=== PATIENT | male | born 1985 | race Caucasian/White ===

== ENCOUNTER 2023-04-07 09:52 | Emergency (ER) | payer BC, SELFPAY ==
--- NOTE | 2023-04-07 10:01 | ED.ABDPAIN ---
HPI - Abdominal Pain General Chief Complaint: Abdominal Pain Stated Complaint: stomach pain Time Seen by Provider: 04/07/23 10:01 Source: patient Mode of arrival: ambulatory Limitations: no limitations History of Present Illness HPI narrative: Harsha is a 37-year-old male patient presenting to clinic today with complaints of abdominal pain x3 days. He reports that he noticed some dark stools this morning. No fever, chills, body aches, nausea, vomiting, or diarrhea. Is passing gas. Has a pressure sensation pain to the left lower quadrant-rates pain a 6/10 is pretty constant. Denies any urinary symptoms. Does drink alcohol regularly. Did take Pepto yesterday to help alleviate symptoms Related Data Home Medications Medication Instructions Recorded Confirmed phentermine 37.5 mg tablet mg 04/07/23 Allergies Allergy/AdvReac Type Severity Reaction Status Date / Time No Known Allergies Allergy Verified 04/07/23 10:02 Review of Systems Review of Systems: Pertinent positives per HPI. Patient denies any fever, chills, rash, headache, visual changes, dizziness, cough, runny nose, sore throat, shortness of breath, chest pain, palpitations, nausea, vomiting, diarrhea, constipation, or any urinary issues. PMFSH Comments At the time of my signature, I reviewed and agree with the nursing past medical, surgical, social, and family history. There is no relevant family history pertinent to the patient complaint. Exam Narrative: General: Well-developed, well nourished, in no apparent distress. Head: Normocephalic, atraumatic. Cardio: Regular rate and rhythm, s1 and s2 normal, no murmur appreciated. Resp: Clear to auscultation bilaterally, no rhonchi, rales, wheezing or rubs. Abdomen: Soft, pliable, bowel sounds present in all quadrants, tender to palpation mostly over the left lower quadrant but some pain in the right upper quadrant and the left upper quadrant as well, no organomegly, no CVAT tenderness. Course Course Emergency Course: Portions of this record may have been created with voice recognition software. Level of Care: Express Care Visit Vital Signs Vital signs: Vital signs reviewed Transfer Transfered to: Other ([facility]) Transportation: Other (private car) Transfer rationale: Left lower quadrant abdominal pain with dark stools Accepting physician: Dr. Maxwell Transfer comments: private car MDM - Abdominal Pain MDM Narrative Medical decision making narrative: At the time of visit patient is resting comfortably on the exam table. Patient has significant pain to the left lower quadrant but also some pain and the right upper quadrant and left upper quadrant. Is reporting dark stools but has taken Pepto. Recommend further evaluation in the ER for labs and CT. Patient would like to be transfer to [facility] and [place], [place]. Contacted James MCHUGH at [facility] and report was given for continuity of care. Dr. Maxwell accepts patient for transfer Differential Diagnosis Differential diagnosis: Likely abdominal pain, constipation, diverticulitis, gastroenteritis, pancreatitis, small bowel obstruction and other (GI bleed) Discharge Plan Discharge Clinical Impression: Left lower quadrant abdominal pain, Dark stools Patient Disposition: Acute Care Hospital Condition: Stable Prescriptions: No Action phentermine 37.5 mg tablet Follow-up/Referrals: PHYSICIAN,STANDARDS ANALYST [Primary Care Provider] - Time of Disposition: 10:20 Quality NIHSS Nursing Documentation ED NIHSS nursing documentation: reviewed/agree
[2023-04-07 10:03] VITALS: BP 136/82; PULSE 95; RESP 16; TEMP 37.3; O2SAT 98
== END 2023-04-07 10:21 | disposition short-term general hospital (02) ==
PROVIDERS: Emergency Provider Nurse Practitioner Family
DX: R10.32 Left lower quadrant pain (principal); R19.5 Other fecal abnormalities
CPT/HCPCS: 99202; G0463

== ENCOUNTER 2023-07-11 11:08 | Emergency (ER) | payer BC, SELFPAY ==
[2023-07-11 11:20] VITALS: BP 110/87; PULSE 87; RESP 18; TEMP 36.5; O2SAT 99
--- NOTE | 2023-07-11 12:24 | ED.URI ---
HPI - URI/Sore Throat General Chief Complaint: Upper Respiratory Infection Stated Complaint: Bodyaches/Chills Time Seen by Provider: 07/11/23 12:04 Source: patient and RN notes reviewed Mode of arrival: ambulatory Limitations: no limitations History of Present Illness HPI Narrative: Patient presents today complaining of body aches, chills, sweats, headache since yesterday. Denies cough, sore throat, known fever, congestion, rhinorrhea. He has been taking [place] cold and flu and Tylenol without much relief. Related Data Allergies Allergy/AdvReac Type Severity Reaction Status Date / Time No Known Allergies Allergy Verified 07/11/23 11:16 Review of Systems Review of Systems: CONSTITUTIONAL: Denies fever. + body aches, chills, sweats EYES: Denies visual changes, redness, or discharge. ENT: Denies rhinorrhea, congestion, sore throat, or otalgia. CARDIOVASCULAR: Denies chest pain, palpitations, or edema. RESPIRATORY: Denies cough or dyspnea. GASTROINTESTINAL: Denies abdominal pain, nausea, vomiting, or diarrhea. GENITOURINARY: Denies dysuria or hematuria. SKIN: Denies rash, itching, or wounds. MUSCULOSKELETAL: Denies back pain, joint pain, or myalgia. NEUROLOGIC: Denies numbness, tingling, or weakness.+ headache PSYCH: Denies depression or anxiety. PMFSH Comments At time of signature, I have reviewed and agree with nursing past medical, surgical, social and family history unless otherwise noted. Please see nursing chart for further information. There is no relevant family history pertinent to the presenting complaint Exam Narrative: GENERAL: Mildly ill-appearing, well-nourished, and in no acute distress. HEAD: Normocephalic, atraumatic. EYES: EOMI. No redness or drainage. Conjunctivae normal. ENT: Mucous membranes pink and moist. Nares clear. No rhinorrhea. TMs normal bilaterally. Throat mildly erythematous without edema or exudate. Uvula midline. NECK: Normal AROM. Supple. No lymphadenopathy. CHEST: No respiratory distress. Clear to auscultation. HEART: Regular rate and rhythm. No murmur appreciated. EXTREMITIES: Normal range of motion. No edema. SKIN: Warm, dry, no rash. Capillary refill normal. Normal skin turgor. NEURO: No focal deficits. Alert and oriented x3. Gait steady. PSYCH: Normal affect. No signs of depression or anxiety. Course Course Level of Care: Express Care Visit Vital Signs Vital signs: Vital Signs Temperature 97.7 F 07/11/23 11:20 Pulse Rate 87 07/11/23 11:20 Respiratory Rate 18 07/11/23 11:20 Blood Pressure 110/87 07/11/23 11:20 Pulse Oximetry 99 07/11/23 11:20 Oxygen Delivery Room Air 07/11/23 11:20 Temperature 97.7 F 07/11/23 11:20 Pulse Rate 87 07/11/23 11:20 Respiratory Rate 18 07/11/23 11:20 Blood Pressure 110/87 07/11/23 11:20 Pulse Oximetry 99 07/11/23 11:20 Oxygen Delivery Room Air 07/11/23 11:20 Reviewed MDM - URI/Sore Throat MDM Narrative Medical decision making narrative: COVID and influenza negative. Symptoms likely viral. Discussed [id number] medication use induration of illness. No prescription medications indicated at this time. Anticipatory guidance given. Differential Diagnosis Differential diagnosis: Likely upper respiratory infection, otitis media, viral infection, influenza and other (COVID-19) Lab Data Attestation: I reviewed the patient's lab results. Labs: Lab Results 07/11/23 Range/Units 11:25 POC SARS CoV-2 Ag Negative (Negative) Influenza A Screen Negative Reference Range: Negative Influenza A Screen Negative Reference Range: Negative Influenza B Screen Negative Reference Range: Negative Critical Care Time Critical Care Time Critical Care Time: No Discharge Plan Discha
== END 2023-07-11 12:32 | disposition home or self-care (01) ==
PROVIDERS: Emergency Provider Nurse Practitioner; PCP Registered Nurse
DX: B34.9 Viral infection, unspecified (principal); Z20.822 Contact with and (suspected) exposure to COVID-19
CPT/HCPCS: 87426; 87804; 99213; G0463

== ENCOUNTER 2024-03-13 08:36 | Emergency (ER) | payer BC, SELFPAY ==
--- NOTE | 2024-03-13 08:38 | ED.URI ---
HPI - URI/Sore Throat General Chief Complaint: Upper Respiratory Infection Stated Complaint: sore throat Time Seen by Provider: 03/13/24 08:38 Source: patient Mode of arrival: ambulatory Limitations: no limitations History of Present Illness HPI Narrative: Marquise is a 38-year-old male patient presenting to the clinic today with complaint of a sore throat, headache, nasal congestion, body aches, chills, and cough x2 days. He reports no known fever. Denies any chest pain or shortness of breath. Denies any sick contacts. Has been taking Mucinex and NyQuil for his symptoms. MD elicited complaint: cough, sore throat, nasal congestion (Headache, chills) and other (Chills) Related Data Allergies Allergy/AdvReac Type Severity Reaction Status Date / Time No Known Allergies Allergy Verified 03/13/24 08:46 Review of Systems Review of Systems: Pertinent positives per HPI. Patient denies any fever, rash, visual changes, dizziness, shortness of breath, chest pain, palpitations, nausea, vomiting, diarrhea, constipation, abdominal pain, or any urinary issues. PMFSH Comments At the time of my signature, I reviewed and agree with the nursing past medical, surgical, social, and family history. There is no relevant family history pertinent to the patient complaint. Exam Narrative: General: Well-developed, obese, in no apparent distress Head: Normocephalic, atraumatic Eyes: Pupils equally round and reactive to light bilaterally, EOM intact, sclera and conjunctive clear, no discharge, lids normal Ears: TMs intact and congested, ear canals clear, no drainage, grossly hearing normal. Nose: Nares patent, clear nasal discharge, no inflammation, no sinus tenderness. Mouth: Oral pharynx mildly red without lesions or masses, good dentition, MMM. Neck: Supple, trachea midline, no enlargement of anterior or posterior cervical nodes, no thyroid masses or goiter palpable. Cardio: Regular rate and rhythm, s1 and s2 normal, no murmur appreciated. Resp: Clear to auscultation bilaterally, no rhonchi, rales, wheezing or rubs Course Course Emergency Course: Portions of this record may have been created with voice recognition software. Level of Care: Express Care Visit Vital Signs Vital signs: Vital Signs Temperature 36.7 C 03/13/24 08:48 Pulse Rate 85 03/13/24 08:48 Respiratory Rate 16 03/13/24 08:48 Blood Pressure 123/80 03/13/24 08:48 Pulse Oximetry 98 03/13/24 08:48 Oxygen Delivery Room Air 03/13/24 08:48 Temperature 36.7 C 03/13/24 08:48 Pulse Rate 85 03/13/24 08:48 Respiratory Rate 16 03/13/24 08:48 Blood Pressure 123/80 03/13/24 08:48 Pulse Oximetry 98 03/13/24 08:48 Oxygen Delivery Room Air 03/13/24 08:48 Vital signs reviewed MDM - URI/Sore Throat MDM Narrative Medical decision making narrative: At the time of visit patient is resting comfortably on the exam table. Patient appears to be nontoxic. Labs: COVID, influenza, and strep test were all performed. All testing was negative in the clinic today. We will send strep for culture. Plan: I suspect patient has URI/pharyngitis/viral syndrome. Supportive measures were discussed with the patient and they voiced understanding discharge instructions and agrees to treatment plan. Return precautions reviewed Differential Diagnosis Differential diagnosis: Likely upper respiratory infection, otitis media, sinusitis, viral infection, bronchitis, influenza, pharyngitis and other (COVID) Discharge Plan Discharge Clinical Impression: Viral infection Upper respiratory infection Qualifiers: URI type: unspecified URI Qualified Code(s): J06.9 - Acute upper respiratory infection, unspecified Pharyngitis Qualifiers: Pharyngitis/tonsillitis etiology: unspecified etiology Qualified Code(s): J02.9 - Acute pharyngitis, unspecified Patient Disposition: Home, Self-Care Condition: Stable Instructions: Antibiotic Form, Pharyngitis (ED), Viral Syndrome (ED), Cold Symptoms (ED) Additional Instructions: COVID, influenza, and strep test were all negative in the clinic today. We will send strep for culture if this comes back positive we will contact you and place you on antibiotics at that time. May take DayQuil/NyQuil for cold/flu symptoms Increase fluids and stay well hydrated Tylenol/motrin for pain/fever Flonase and OTC antihistamines as directed Vicks vapor rub to open sinuses Sinus rinses for congestion Cepacol spray, cough drops, throat lozenges, warm tea with honey/lemon, gargle salt water to soothe throat BRAT diet for diarrhea Clear liquids x 24 hours then advance as tolerated for nausea/vomiting Go to the ED if you develop a worsening in your condition- high fever not controlled by Tylenol or Motrin, dehydration, weakness, lethargy, shortness of breath, or chest pain. Follow up with your PCP in 3-5 days if symptoms persist. Follow-up/Referrals: PHYSICIAN,MEDICAL RECORDS MANAGER [Primary Care Provider] - Stand Alone Forms: Work/School Release IP Time of Disposition: 09:08 Quality NIHSS Nursing Documentation ED NIHSS nursing documentation: reviewed/agree
[2024-03-13 08:48] VITALS: BP 123/80; PULSE 85; RESP 16; TEMP 36.7; O2SAT 98
[2024-03-13 11:45] LABS: EDCOVIDSCREEN Negative (Negative); EDINFLUASCREEN Negative (Negative); EDINFLUBSCREEN Negative (Negative); EDSTREPNEGPOS1 Negative (Negative)
== END 2024-03-13 09:19 | disposition home or self-care (01) ==
PROVIDERS: Emergency Provider Nurse Practitioner Family
DX: B34.9 Viral infection, unspecified (principal); J06.9 Acute upper respiratory infection, unspecified; J02.9 Acute pharyngitis, unspecified; Z20.822 Contact with and (suspected) exposure to COVID-19
CPT/HCPCS: 87081; 87426; 87804; 87880; 99213; G0463